=== PATIENT | male | born 1985 | race Caucasian/White ===

== ENCOUNTER 2019-12-12 22:53 | Emergency (ER) | payer OTHER ==
[~2019-12-12] VITALS: Ht 193 cm; Wt 81.7 kg
[~2019-12-12 22:53] MED LIST: CLEOCIN HCL150 MG PO; NOHOMEMEDICATIONS; NORCO 5-325 TA1 EACH PO
[2019-12-12] MEDS ORDERED: PERCOCET 5-3251 EACH PO (23:31)
[2019-12-12 23:58] VITALS: BP 142/92
== END 2019-12-12 23:59 | disposition home or self-care (01) ==
LOC: ER 22:53
DX: G89.18 Other acute postprocedural pain (principal); M79.645 Pain in left finger(s); M79.602 Pain in left arm; F17.210 Nicotine dependence, cigarettes, uncomplicated; Z79.899 Other long term (current) drug therapy; Z79.2 Long term (current) use of antibiotics; Z89.022 Acquired absence of left finger(s)